=== PATIENT | female | born 1945 | race Caucasian/White ===

== ENCOUNTER 2017-11-27 17:08 | Inpatient (IN) ==
[2017-11-27] MEDS ORDERED: Lidocaine 1%/Epinephrine 1:100,000 Inj 20 ML Vial INFILTRATN ONE (17:47)
[2017-11-27] MEDS ORDERED: Tetanus/Diphtheria Toxoid Adult Vaccine Inj 0.5 ML Vial IM ONE (17:47)
--- NOTE | 2017-11-27 17:54 | ED ---
HPI General Chief Complaint: Extremity Injury, Lower Stated Complaint: poss broken leg Time Seen by Provider: 11/27/17 17:37 Source: patient and RN notes reviewed Mode of arrival: EMS Limitations: no limitations History of Present Illness HPI Narrative: 72-year-old female presents to the emergency department via EMS for evaluation of bilateral lower extremity injury. Patient states she was painting approximately 6 feet up on a ledge in her kitchen. She states that she slipped and fell, but her left leg got caught and she was hanging upside down by her left leg. Her came and was able to get her down. She was unable to walk due to pain. EMS placed a splint on her left leg and she received morphine prior to arrival. Patient denies any head injury LOC. No neck pain or back pain. No chest pain or abdominal pain. No vomiting. She is not on anticoagulants and has no bleeding disorders. She reports 6/10 pain to the left lower extremity and right lower extremity. She has a large laceration to the right anterior lower leg. She states her tetanus immunization is not up- to-date. She also has an abrasion to the left lower extremity. Moderate severity. MD complaint: knee injury and leg injury Onset (ago): minute(s) Injury: Left: knee Type of Injury: other Place: home Severity: moderate Severity scale (1-10): 6 Relieving factors: immobilization and other (Pain medication) Exacerbating factors: weight bearing, movement and palpation Context: fall Associated symptoms: unable to bear weight Other symptoms: none Related Data Home Medications Medication Instructions Recorded Confirmed citalopram 20 mg PO DAILY 11/27/17 11/27/17 Allergies Allergy/AdvReac Type Severity Reaction Status Date / Time No Known Allergies Allergy Uncoded 01/10/15 12:19 Review of Systems ROS: all other systems reviewed are negative PMFSH Medical History Medical History Breast cancer (Acute) Cervical cancer (Acute) Surgical History Surgical History History of mastectomy (Acute) Social History Social History Substance History: No History of Abuse Second Hand Smoke Exposure: No Smoking Status: Never smoker How Often Do You Have a Drink Containing Alcohol: 2 to 3 times a week Recent Travel in [facility] within the Last 8 Weeks: No Recent Out of Country Travel within the Last 8 Weeks: No Immunization History Tetanus Immunization: Unsure Hx Influenza Vaccine This Season: No Exam Narrative Exam Narrative: GENERAL: Well-nourished, well-developed female patient, afebrile SKIN: Focused skin assessment warm/dry. Patient has a 7cm laceration to the right anterior lower leg. She has an abrasion to the left anterior lower leg. HEAD: Normocephalic. Atraumatic EYES: No scleral icterus. No injection or drainage. NECK: Supple, trachea midline. No JVD or lymphadenopathy. CARDIOVASCULAR: Regular rate and rhythm without murmurs, gallops, or rubs. Bilateral pedal pulses 2+ RESPIRATORY: Breath sounds equal bilaterally. No accessory muscle use. Lung sounds are clear to auscultation GASTROINTESTINAL: Abdomen soft, non-tender, nondistended. MUSCULOSKELETAL: No cyanosis, or edema. Patient has left knee in a flexed position. She has ecchymosis and swelling to the left knee. She has tenderness over right tibia/fibula BACK: Nontender without obvious deformity. No CVA tenderness. No midline spinal tenderness. Procedures Laceration Laceration 1: Site: lower extremity Side (If applicable): right Size (cm): 7 Description: stellate Depth: simple, single layer Anesthetic used: lidocaine 1% Anesthesia technique:: local infiltration Amount (mL): 10 Pre-repair:: wound explored, irrigated extensively and deep structures intact Skin layer closed with: prolene Size (cm): 3-0 Number of sutures:: 12 Technique:: simple, interrupted Orthopedic Joint Reduction Joint #1: Time Out Performed: Yes Side: left Joint Reduction Location: knee/patella Technique Used: traction/counter-traction Post-Reduction Neuro Exam: intact Post-Reduction Vascular Exam: intact Post Reduction X-Ray Obtained: Yes Post Reduction X-Ray Results: other (partially reduced) Splint Applied: Yes Patient Tolerated Procedure: well Procedural Sedation Indications: fracture/dislocation reduction ASA Class: ASA 2 Moderate Systemic Disease Preparation: air sampling and monitoring applied, pulse oximeter, capnometry used, supplemental O2 applied, suction/airway equipment at bedside and IV secured IV Propofol Dose (mgs): 120 Patient Tolerated Procedure: well Complications: none Interventions: oxygen applied Course Initial Documented Vital Signs Temperature 98.1 F 11/27/17 17:29 Pulse Rate 65 11/27/17 17:29 Respiratory Rate 18 11/27/17 17:29 Blood Pressure 150/68 H 11/27/17 17:29 Pulse Oximetry 96 11/27/17 17:29 Last Documented Vital Signs Temperature 98.1 F 11/27/17 17:29 Pulse Rate 68 11/27/17 19:31 Respiratory Rate 18 11/27/17 19:31 Blood Pressure 137/60 11/27/17 19:31 Pulse Oximetry 98 11/27/17 19:31 Medical Decision Making KAUSHIK Attestation KAUSHIK supervised visit: Yes Attestation: I, Dr. Harris, have reviewed the advance practice practitioner's documentation and am in agreement, met with the patient face to face, made the diagnosis, and the medical decision making was done by me. *My assessment and Findings: Bedside dislocation reduction was performed and intervals of apparent anatomic alignment occurred lasting a few seconds and then the tibia would re-dislocate. Patient received 120 mg of propofol and was adequately sedated. Several times were made. Knee immobilizer applied. Pt will be admitted for pain management, monitoring and orthopedics evaluation and treatment. MDM Narrative Medical decision making narrative: 72 year old female presents to the emergency department for evaluation of bilateral lower leg injury after she slipped and was hanging upside down. Patient received morphine by EMS and declines further pain medication at this time. X-ray of the right knee, right tibia/fibula, left tibia/fibula, pelvis are ordered and pending. Tetanus immunization is updated. Patient gives verbal consent for laceration repair. X-ray of the right knee shows anterior dislocation of the femur, though definite fracture seen, however, there are radiographic findings suggesting possible fat fluid level in the suprapatellar bursa. X-ray of the right tibia/ fibula shows no evidence of recent bony injury. X-ray of the left tibia/fibula shows no acute bony injury. X-ray of the pelvis shows no acute bony injury. Reduction was attempted by my attending physician, Dr. Harris. However, anatomic alignment with only last a few seconds and would dislocate again. Knee immobilizer was placed. Postreduction x-ray is ordered. CBC, CMP, PTT, PT /INR are ordered and pending. CBC shows no acute abnormality. CMP shows no acute abnormality. PTT is 22.2. PT/INR is 10.0/1.0. I spoke with Dr. Mtz due to instability of the knee. MRI of the left knee is ordered per his request. He recommends admission and consult placed to him. Hospitalist is paged for admission. Dr. Caicedo accepted admission. Medical Screen Exam Complete: Yes Emergency Medical Condition: Yes Differential Diagnosis Differential Diagnosis: laceration vs. fracture vs. contusion vs. dislocation vs. ligamentaous injury Lab Data Result diagrams: 11/27/17 20:03 11/27/17 20:03 Lab Results 11/27/17 11/27/17 11/27/17 Range/Units 20:03 20:03 20:03 WBC 8.3 (4.0-11.0) th/mm3 RBC 4.51 (4.00-5.30) mil/mm3 Hgb 15.1 (11.6-15.3) gm/dL Hct 42.8 (35.0-46.0) % MCV 94.9 (80.0-100.0) fL MCH 33.4 (27.0-34.0) pg MCHC 35.2 (32.0-36.0) % RDW 12.5 (11.6-17.2) % Plt Count 213 (150-450) th/mm3 MPV 7.7 (7.0-11.0) fL Neut % (Auto) 66.9 (16.0-70.0) % Lymph % (Auto) 25.8 (9.0-44.0) % [place] % (Auto) 6.5 (0.0-8.0) % Eos % (Auto) 0.3 (0.0-4.0) % Baso % (Auto) 0.5 (0.0-2.0) % Neut # (Auto) 5.6 (1.8-7.7) th/mm3 Lymph # (Auto) 2.1 (1.0-4.8) th/mm3 [place] # (Auto) 0.5 (0.0-0.9) th/mm3 Eos # (Auto) 0.0 (0.0-0.4) th/mm3 Baso # (Auto) 0.0 (0.0-0.2) th/mm3 WBC Differential . Differential Comment Auto diff final PT 10.0 (9.8-11.6) sec INR 1.0 Ratio APTT 22.2 L (24.3-30.1) sec Sodium 143 (136-145) meq/L Potassium 3.8 (3.5-5.1) meq/L Chloride 108 H (98-107) meq/L Carbon Dioxide 26.5 (21.0-32.0) meq/L Anion Gap 9 (5-15) meq/L BUN 19 H (7-18) mg/dL Creatinine 0.88 (0.50-1.00) mg/dL Estimated GFR 63 L (>89) mL/min Random Glucose 94 (74-106) mg/dL Calcium 8.8 (8.5-10.1) mg/dL Total Bilirubin 0.5 (0.2-1.0) mg/dL AST 26 (15-37) U/L ALT 29 (10-53) U/L Alkaline Phosphatase 72 (45-117) U/L Total Protein 7.1 (6.4-8.2) g/dL Albumin 3.7 (3.4-5.0) g/dL Imaging Data Radiologist's impression: Knee X-Ray 11/27/17 17:47 CONCLUSION: Anterior dislocation of the femur. No definite fracture seen, however, there are radiographic findings suggesting possible fat fluid level in the suprapatellar bursa. Pelvis X-Ray 11/27/17 17:47 CONCLUSION: The bony pelvic ring is grossly intact. No evidence of acute bony injury. Tibia/Fibula X-Ray 11/27/17 17:47 CONCLUSION: The tibia and fibula are radiographically intact. Tibia/Fibula X-Ray 11/27/17 17:47 CONCLUSION: No evidence of recent bony injury. Knee X-Ray 11/27/17 19:51 CONCLUSION: Normal alignment of the femur and tibia status post reduction. Possible bony fragments or loose bodies seen posterior to the knee joint on the lateral view. Discharge Plan Discharge Disposition Patient Disposition: 30 Still Patient Discharge Details Diagnosis: Anterior dislocation of femur, distal end, closed, Acute internal derangement of knee Physicians Team ED Provider: Bayron Harris ED Midlevel Provider: Camila Fallon Primary Care Provider: Lazaro Wilburn Rxs /Orders / Referrals /Forms Prescriptions: No Action citalopram 10 mg Tablet 20 mg PO DAILY RF: 0 Status ED Status: With Doctor
--- NOTE | 2017-11-27 18:46 | XR ---
EXAM DATE: 11/27/2017 6:41 PM EDT AGE/SEX: 72 years / Female INDICATIONS: Left knee pain, fall. CLINICAL DATA: This is the patient's initial encounter. Patient reports that signs and symptoms have been present for 1 day and indicates a pain score of 10/10. MEDICAL/SURGICAL HISTORY: None. None. COMPARISON: [facility] [place], TIBIA FIBULA LEFT 2V, 11/27/2017. . FINDINGS: There is anterior dislocation of the femur with respect to the tibia and fibula. The patella remains in alignment with the distal femur. No fractures seen. No radiopaque foreign bodies. No distention of the suprapatellar soft tissues, but possible fat fluid level. CONCLUSION: Anterior dislocation of the femur. No definite fracture seen, however, there are radiographic finding s suggesting possible fat fluid level in the suprapatellar bursa. Electronically signed by: Luis Moura MD 11/27/2017 6:45 PM EDT
--- NOTE | 2017-11-27 18:48 | XR ---
EXAM DATE: 11/27/2017 6:38 PM EDT AGE/SEX: 72 years / Female INDICATIONS: Pelvic pain. CLINICAL DATA: This is the patient's initial encounter. Patient reports that signs and symptoms have been present for 1 day and indicates a pain score of 10/10. MEDICAL/SURGICAL HISTORY: None. None. COMPARISON: POI, XR HIP AP AND LAT, RIGHT, 08/23/2014. POI, XR ABDOMEN FLAT AND UPRIGHT, 8. . FINDINGS: Right total hip arthroplasty. Advanced degenerative changes in the left hip, unchanged in appearance when compared to 11/12/2017. The bony pelvic ring is intact. Moderate degenerative changes in the lower lumbar posterior elements. CONCLUSION: The bony pelvic ring is grossly intact. No evidence of acute bony injury. Electronically signed by: Luis Moura MD 11/27/2017 6:47 PM EDT
--- NOTE | 2017-11-27 18:49 | XR ---
EXAM DATE: 11/27/2017 6:43 PM EDT AGE/SEX: 72 years / Female INDICATIONS: Left leg pain, fall. CLINICAL DATA: This is the patient's initial encounter. Patient reports that signs and symptoms have been present for 1 day and indicates a pain score of 10/10. MEDICAL/SURGICAL HISTORY: None. None. COMPARISON: No prior exams available for comparison. FINDINGS: The shaft of the tibia and fibula is intact. No fracture seen. There is anterior dislocation of the f emur. CONCLUSION: The tibia and fibula are radiographically intact. Electronically signed by: Luis Moura MD 11/27/2017 6:47 PM EDT
--- NOTE | 2017-11-27 18:49 | XR ---
EXAM DATE: 11/27/2017 6:41 PM EDT AGE/SEX: 72 years / Female INDICATIONS: Right leg pain, fall. CLINICAL DATA: This is the patient's initial encounter. Patient reports that signs and symptoms have been present for 1 day and indicates a pain score of 10/10. MEDICAL/SURGICAL HISTORY: None. None. COMPARISON: No prior exams available for comparison. FINDINGS: Bony structures are intact and in normal alignment. Osseous density is normal. Localized soft tissue thickening adjacent to the proximal one third shaft of the tibia. No radiopaque foreign bodies seen. CONCLUSION: No evidence of recent bony injury. Electronically signed by: Luis Moura MD 11/27/2017 6:48 PM EDT
[2017-11-27 20:18] LABS: Baso % (Auto) 0.5 % (0.0-2.0); Eos % (Auto) 0.3 % (0.0-4.0); Hematocrit 42.8 % (35.0-46.0); Hemoglobin 15.1 gm/dL (11.6-15.3); Lymph # (Auto) 2.1 th/mm3 (1.0-4.8); Lymph % (Auto) 25.8 % (9.0-44.0); Mean Corpuscular HGB Conc 35.2 % (32.0-36.0); Mean Corpuscular Hemoglobin 33.4 pg (27.0-34.0); Mean Corpuscular Volume 94.9 fL (80.0-100.0); Mean Platelet Volume 7.7 fL (7.0-11.0); Mono # (Auto) 0.5 th/mm3 (0.0-0.9); Mono % (Auto) 6.5 % (0.0-8.0); Neut # (Auto) 5.6 th/mm3 (1.8-7.7); Neut % (Auto) 66.9 % (16.0-70.0); Platelet Count 213 th/mm3 (150-450); Red Blood Count 4.51 mil/mm3 (4.00-5.30); Red Cell Distribution Width 12.5 % (11.6-17.2); White Blood Count 8.3 th/mm3 (4.0-11.0)
[2017-11-27 20:23] LABS: Activated Partial Thrombo Time 22.2 sec (24.3-30.1)
[2017-11-27 20:46] LABS: Alanine Aminotransferase 29 U/L (10-53); Albumin 3.7 g/dL (3.4-5.0); Anion Gap 9 meq/L (5-15); Aspartate Aminotransferase 26 U/L (15-37); Blood Urea Nitrogen 19 mg/dL (7-18); Calcium 8.8 mg/dL (8.5-10.1); Carbon Dioxide 26.5 meq/L (21.0-32.0); Chloride 108 meq/L (98-107); Glomerular Filtration Rate 63 mL/min (>89); Glucose,Random 94 mg/dL (74-106); Potassium 3.8 meq/L (3.5-5.1); Sodium 143 meq/L (136-145)
[2017-11-27 20:48] LABS: Alkaline Phosphatase 72 U/L (45-117); Total Protein 7.1 g/dL (6.4-8.2)
--- NOTE | 2017-11-27 21:29 | XR ---
EXAM DATE: 11/27/2017 9:25 PM EDT AGE/SEX: 72 years / Female INDICATIONS: Post reduction, left knee dislocation. CLINICAL DATA: This is the patient's initial encounter. Patient reports that signs and symptoms have been present for 1 day and indicates a pain score of 7/10. MEDICAL/SURGICAL HISTORY: None. None. COMPARISON: [facility] [place] [facility] [place] KNEE LIMITED LEFT 04/07V, 11/27/2017. . FINDINGS: 2 view examination of the knee demonstrates normal alignment of the femur with respect to the tibia. On the lateral view, there are 2 ossific density is which measure up to 5 mm in size which may repres ent bony fragments, possibly related to tibial spine fractures. The fabella appears grossly intact. T he suprapatellar soft tissues are obscured by metallic braces. CONCLUSION: Normal alignment of the femur and tibia status post reduction. Possible bony fragments or loose odessa s seen posterior to the knee joint on the lateral view. Electronically signed by: Luis Moura MD 11/27/2017 9:28 PM EDT
[2017-11-27] MEDS ORDERED: Acetaminophen 325 MG Tablet PO PRN (23:49)
[2017-11-27] MEDS ORDERED: Bisacodyl 10 MG Supp RECTAL PRN (23:49)
[2017-11-27] MEDS ORDERED: HYDROmorphone PF Inj 2 MG/ML Vial IV.PUSH ONE (23:54)
--- NOTE | 2017-11-28 00:07 | P.HP ---
History of Present Illness Service: [facility] Primary Care Physician: Lazaro Wilburn History of Present Illness: 72-year-old female with past medical history significant for history of breast cancer presents to the emergency department after suffering a fall. The patient reports she was painting on a ledge in her kitchen when she slipped and fell but her leg got caught. The patient was hanging upside down by her left leg. Her brought a ladder and was able to dislodge her leg and carry her down from the ledge. Following the incident, the patient was unable to walk secondary to pain. She was found to have an anterior dislocation of the left femur and a 7 cm laceration to the right anterior lower leg. The patient' s femur was reduced multiple times in the emergency department and is currently splinted. She is neurovascularly intact. She endorses left lower extremity pain. Denies chest pain or shortness of breath. No loss of consciousness or head trauma. No abdominal pain. No nausea/vomiting/diarrhea. No fever/ chills. No lateralizing signs/symptoms. Inpatient Certification: I certify that the inpatient services were ordered in accordance with Medicare regulations governing the order. This includes certification that hospital inpatient services are reasonable and necessary and in the case of services not specified as inpatient-only under 42 CFR 419.22(n), that they are appropriately provided as inpatient services in accordance to with the 2-midnight benchmark under 43 CFR 412.3(e) Estimated Total Length of Stay (Days): 2 Plans for Post Hospital Care: Not yet determined Review of Systems All other systems reviewed negative except as stated in [facility] - History History Provided By: Patient - Medical History Medical History: Medical History (Last Updated 11/27/17 @ 17:34 by Jesus Fletcher) Breast cancer Cervical cancer - Surgical History Surgical History: Surgical History (Last Updated 11/27/17 @ 17:34 by Jesus Fletcher) History of mastectomy - Family History Family History: Family History (Last Updated 11/27/17 @ 23:58 by Gwen Caicedo MD) Other Coronary artery disease - Tobacco History Second Hand Smoke Exposure: No Tobacco Use In Past 30 Days: No Smoking Status: Never smoker - Alcohol History How Often Do You Have a Drink Containing Alcohol: 2 to 3 times a week - Substance Use History Substance History: No History of Abuse - Travel History Recent Travel in the [place] Within the Last 8 Weeks: No Recent Travel Out of the Country Within the Last 8 Weeks: No - Immunization History Tetanus Immunization: Unsure Hx Influenza Vaccine This Season: No Medications and Allergies Allergies Allergy/AdvReac Type Severity Reaction Status Date / Time No Known Allergies Allergy Uncoded 01/10/15 12:19 Home Medications Medication Instructions Recorded Confirmed Type citalopram 20 mg PO DAILY 11/27/17 11/27/17 History Exam Vital signs: Vital Signs 11/27/17 17:29 11/27/17 17:35 11/27/17 19:31 Temperature 98.1 F Pulse Rate 65 68 68 Respiratory Rate 18 Blood Pressure 150/68 H 150/68 H 137/60 Pulse Oximetry 96 95 98 Intake & Output 11/27/17 11/27/17 11/28/17 06:59 18:59 06:59 Weight 77.111 kg Narrative: Gen.: No acute distress Head: Normocephalic. Atraumatic. EENT: Pupils equal round and reactive to light. Nose without drainage. Airway intact. Throat without injection. Cardiovascular: Regular rate and rhythm. No murmurs, rubs or gallops. Respiratory: Lungs clear to auscultation bilaterally. No wheezes or rhonchi. Abdomen: Soft, nontender, nondistended. No peritoneal signs. Musculoskeletal: Left lower extremity splinted. Neurovascularly intact. Skin: Right lower extremity laceration, status post repair, hemostatic. Neuro: Sensory and motor grossly intact. Cranial nerves II through XII grossly intact. Results - Labs CBC & Chem 7: 11/27/17 20:03 11/27/17 20:03 Labs: Laboratory Results - last 24 hr 11/27/17 11/27/17 11/27/17 20:03 20:03 20:03 WBC 8.3 RBC 4.51 Hgb 15.1 Hct 42.8 MCV 94.9 MCH 33.4 MCHC 35.2 RDW 12.5 Plt Count 213 MPV 7.7 Neut % (Auto) 66.9 Lymph % (Auto) 25.8 [place] % (Auto) 6.5 Eos % (Auto) 0.3 Baso % (Auto) 0.5 Neut # (Auto) 5.6 Lymph # (Auto) 2.1 [place] # (Auto) 0.5 Eos # (Auto) 0.0 Baso # (Auto) 0.0 WBC Differential . Differential Comment Auto diff final PT 10.0 INR 1.0 APTT 22.2 L Sodium 143 Potassium 3.8 Chloride 108 H Carbon Dioxide 26.5 Anion Gap 9 BUN 19 H Creatinine 0.88 Estimated GFR 63 L Random Glucose 94 Calcium 8.8 Total Bilirubin 0.5 AST 26 ALT 29 Alkaline Phosphatase 72 Total Protein 7.1 Albumin 3.7 - Imaging Impressions Knee X-Ray 11/27/17 17:47 CONCLUSION: Anterior dislocation of the femur. No definite fracture seen, however, there are radiographic findings suggesting possible fat fluid level in the suprapatellar bursa. Pelvis X-Ray 11/27/17 17:47 CONCLUSION: The bony pelvic ring is grossly intact. No evidence of acute bony injury. Tibia/Fibula X-Ray 11/27/17 17:47 CONCLUSION: The tibia and fibula are radiographically intact. Tibia/Fibula X-Ray 11/27/17 17:47 CONCLUSION: No evidence of recent bony injury. Knee X-Ray 11/27/17 19:51 CONCLUSION: Normal alignment of the femur and tibia status post reduction. Possible bony fragments or loose bodies seen posterior to the knee joint on the lateral view. Caprini VTE Risk Assessment Caprini VTE Risk Assessment: Moderate/High Risk (score >= 2) Caprini Risk Assessment Model: Point Value = 1 Point Value = 2 Point Value = 3 Point Value = 5 Age 41-60 Minor surgery BMI > 25 kg/m2 Swollen legs Varicose veins or History of unexplained or recurrent spontaneous Oral contraceptives or hormone replacement Sepsis (< 1 month) Serious lung disease, including pneumonia (< 1 month) Abnormal pulmonary function Acute myocardial infarction Congestive heart failure (< 1 month) History of inflammatory bowel disease Medical patient at bed rest Age 61-74 Arthroscopic surgery Major open surgery (> 45 min) Laparoscopic surgery (> 45 min) Malignancy Confined to bed (> 72 hours) Immobilizing plaster cast Central venous access Age >= 75 History of VTE Family history of VTE Factor V Leiden Prothrombin [id number] Lupus anticoagulant Anticardiolipin antibodies Elevated serum homocysteine Heparin-induced thrombocytopenia Other congenital or acquired thrombophilia Stroke (< 1 month) Elective arthroplasty Hip, pelvis, or leg fracture Acute spinal cord injury (< 1 month) Prophylaxis Regimen: Total Risk Factor Score Risk Level Prophylaxis Regimen 0-1 Low Early ambulation 2 Moderate Order ONE of the following: *Sequential Compression Device (SCD) *Heparin 5000 units SQ BID 3-4 Higher Order ONE of the following medications: *Heparin 5000 units SQ TID *Enoxaparin/Lovenox 40 mg SQ daily (WT < 150 kg, CrCl > 30 mL/min) *Enoxaparin/Lovenox 30 mg SQ daily (WT < 150 kg, CrCl > 10-29 mL/min) *Enoxaparin/Lovenox 30 mg SQ BID (WT < 150 kg, CrCl > 30 mL/min) AND/OR *Sequential Compression Device (SCD) 5 or more Highest Order ONE of the following medications: *Heparin 5000 units SQ TID (Preferred with Epidurals) *Enoxaparin/Lovenox 40 mg SQ daily (WT < 150 kg, CrCl > 30 mL/min) *Enoxaparin/Lovenox 30 mg SQ daily (WT < 150 kg, CrCl > 10-29 mL/min) *Enoxaparin/Lovenox 30 mg SQ BID (WT < 150 kg, CrCl > 30 mL/min) AND *Sequential Compression Device (SCD) Assessment and Plan - Plan Assessment/plan: 1. Left lower extremity injury/femur dislocation Orthopedic surgery consulted, appreciate assistance MRI pending Morphine for pain PT FEN N.p.o. Electrolytes: Monitor and replete as needed NS at 100 cc/hour Holding pharmacologic anticoagulation for possible operative intervention
--- NOTE | 2017-11-28 00:58 | MR ---
EXAM DATE: 11/28/2017 12:42 AM EDT AGE/SEX: 72 years / Female INDICATIONS: Internal derangement. CLINICAL DATA: This is the patient's initial encounter. Patient reports that signs and symptoms have been present for 1 day and indicates a pain score of 9/10. MEDICAL/SURGICAL HISTORY: Carcinoma, breast. Mastectomy, right. Hip replacement. COMPARISON: [facility] – [place], KNEE LIMITED LEFT 1/2V, 11/27/2017. . TECHNIQUE: Multiplanar, multisequence MRI examination was performed without contrast. FINDINGS: Images are somewhat limited due to motion artifact on every sequence. Cruciate Ligaments: The posterior cruciate ligament appears to be completely disrupted anterior cruc iate ligament is intact. Menisci: Medial and lateral menisci are intact. Collateral Ligaments: MCL and LCL complexes are intact. Marrow/Cartilage: Bone marrow signal is homogeneous and unremarkable. Articular cartilage is unrema rkable. Other: Small to moderate-sized joint effusion. Extensor mechanism is intact. CONCLUSION: 1. There appears to be complete disruption of the posterior cruciate ligament. Anterior cruciate lig ament and both menisci appear to be intact. 2. Small to moderate-sized joint effusion. Electronically signed by: Chris Moreira MD 11/28/2017 12:57 AM EDT
[2017-11-28] MEDS ORDERED: Sodium Chlor 0.9% Inj 500 ML IV.SIG SCH (04:00)
[2017-11-28] MEDS ORDERED: Chlorhexidine Gluconate 2% 1 Pack (2 Cloths) TOPICAL SCH (04:00)
[2017-11-28] MEDS: Morphine Inj 4 MG/ML Vial IV.PUSH PRN ×3 (04:09→13:27)
[2017-11-28] MEDS: Sod Chloride 0.9% Inj 1,000 ML IV.CONT SCH ×3 (04:09→23:29)
[2017-11-28 06:24] LABS: Baso % (Auto) 0.3 % (0.0-2.0); Hematocrit 39.1 % (35.0-46.0); Hemoglobin 13.4 gm/dL (11.6-15.3); Lymph # (Auto) 2.2 th/mm3 (1.0-4.8); Lymph % (Auto) 27.3 % (9.0-44.0); Mean Corpuscular HGB Conc 34.4 % (32.0-36.0); Mean Corpuscular Hemoglobin 33.2 pg (27.0-34.0); Mean Corpuscular Volume 96.5 fL (80.0-100.0); Mean Platelet Volume 6.9 fL (7.0-11.0); Mono # (Auto) 0.8 th/mm3 (0.0-0.9); Mono % (Auto) 9.6 % (0.0-8.0); Neut % (Auto) 62.8 % (16.0-70.0); Platelet Count 171 th/mm3 (150-450); Red Blood Count 4.05 mil/mm3 (4.00-5.30); Red Cell Distribution Width 12.8 % (11.6-17.2)
[2017-11-28 07:14] LABS: Carbon Dioxide 26.6 meq/L (21.0-32.0); Potassium 4.2 meq/L (3.5-5.1)
[2017-11-28] MEDS: Senna/Docusate Sodium 8.6/50 MG Tablet PO SCH (08:38)
--- NOTE | 2017-11-28 12:38 | P.PNIM ---
Subjective Interval history: Patient seen and examined this morning. Afebrile vital signs stable. Lying in bed comfortably. Denies any severe pain. Explained to the patient that she has a rupture of the posterior cruciate ligament. Described how her procedure will likely occur with the orthopedic surgeon. To be evaluated by orthopedic surgeon today and likely will have surgery later today. Physical Exam Vital signs: Vital Signs 11/27/17 17:29 11/27/17 17:35 11/27/17 19:31 Temperature 98.1 F Pulse Rate 65 68 68 Respiratory Rate 18 18 18 Blood Pressure 150/68 H 150/68 H 137/60 Pulse Oximetry 96 95 98 11/28/17 01:00 11/28/17 06:00 11/28/17 08:00 Temperature 98.8 F 97.8 F 98.4 F Pulse Rate 77 68 70 Respiratory Rate 16 18 12 Blood Pressure 135/63 132/61 120/58 L Pulse Oximetry 96 96 94 L Intake & Output 11/27/17 11/28/17 11/28/17 18:59 06:59 18:59 Intake Total 0 / 0 Balance 0 / 0 Weight 77.111 kg 78.3 kg Intake: Oral 0 / 0 Other: # Voids 0 Date of Last Bowel Movement 11/27/17 11/27/17 Weight On Admission 77.1 kg Narrative: GEN: Well-developed, well-nourished patient. No acute distress. MSK: Left knee in soft splint CV: Regular rate and rhythm without obvious murmurs LUNGS: Clear to auscultation bilaterally. Normal respiratory effort. No wheezes , rales, rhonchi. GI: Soft, nontender, nondistended. No palpable masses. Bowel sounds WNL. EXT: No edema. NEURO/PSYCH: Afocal. Awake, alert, and oriented x3. Appropriate insight and judgment. Results - Labs CBC & Chem 7: 11/28/17 05:35 11/28/17 05:35 Laboratory Results - last 24 hr 11/27/17 11/27/17 11/27/17 20:03 20:03 20:03 WBC 8.3 RBC 4.51 Hgb 15.1 Hct 42.8 MCV 94.9 MCH 33.4 MCHC 35.2 RDW 12.5 Plt Count 213 MPV 7.7 Neut % (Auto) 66.9 Lymph % (Auto) 25.8 [place] % (Auto) 6.5 Eos % (Auto) 0.3 Baso % (Auto) 0.5 Neut # (Auto) 5.6 Lymph # (Auto) 2.1 [place] # (Auto) 0.5 Eos # (Auto) 0.0 Baso # (Auto) 0.0 WBC Differential . Differential Comment Auto diff final PT 10.0 INR 1.0 APTT 22.2 L Sodium 143 Potassium 3.8 Chloride 108 H Carbon Dioxide 26.5 Anion Gap 9 BUN 19 H Creatinine 0.88 Estimated GFR 63 L Random Glucose 94 Calcium 8.8 Total Bilirubin 0.5 AST 26 ALT 29 Alkaline Phosphatase 72 Total Protein 7.1 Albumin 3.7 11/28/17 11/28/17 05:35 05:35 WBC 8.0 RBC 4.05 Hgb 13.4 Hct 39.1 MCV 96.5 MCH 33.2 MCHC 34.4 RDW 12.8 Plt Count 171 MPV 6.9 L Neut % (Auto) 62.8 Lymph % (Auto) 27.3 [place] % (Auto) 9.6 H Eos % (Auto) 0.0 Baso % (Auto) 0.3 Neut # (Auto) 5.0 Lymph # (Auto) 2.2 [place] # (Auto) 0.8 Eos # (Auto) 0.0 Baso # (Auto) 0.0 WBC Differential . Differential Comment Auto diff final PT INR APTT Sodium 141 Potassium 4.2 Chloride 109 H Carbon Dioxide 26.6 Anion Gap 5 BUN 12 Creatinine 0.67 Estimated GFR 86 L Random Glucose 126 H Calcium 8.0 L D Total Bilirubin AST ALT Alkaline Phosphatase Total Protein Albumin - Imaging Impressions Knee X-Ray 11/27/17 17:47 CONCLUSION: Anterior dislocation of the femur. No definite fracture seen, however, there are radiographic findings suggesting possible fat fluid level in the suprapatellar bursa. Pelvis X-Ray 11/27/17 17:47 CONCLUSION: The bony pelvic ring is grossly intact. No evidence of acute bony injury. Tibia/Fibula X-Ray 11/27/17 17:47 CONCLUSION: The tibia and fibula are radiographically intact. Tibia/Fibula X-Ray 11/27/17 17:47 CONCLUSION: No evidence of recent bony injury. Knee X-Ray 11/27/17 19:51 CONCLUSION: Normal alignment of the femur and tibia status post reduction. Possible bony fragments or loose bodies seen posterior to the knee joint on the lateral view. Knee MRI 11/27/17 21:53 CONCLUSION: 1. There appears to be complete disruption of the posterior cruciate ligament. Anterior cruciate ligament and both menisci appear to be intact. 2. Small to moderate-sized joint effusion. Assessment and Plan - Assessment (1) Posterior cruciate tear Code(s): S83.529A - Sprain of posterior cruciate ligament of unspecified knee, initial encounter Status: Acute - Plan This is a 72-year-old female with dislocation of the left knee that resulted in a tear of the left posterior cruciate ligament. Her knee has been reset, and patient be further evaluated by orthopedic surgery for likely further surgical repair. 1. Left posterior cruciate ligament tear Orthopedic surgery consulted, appreciate assistance Morphine for pain PT FEN N.p.o. Electrolytes: Monitor and replete as needed NS at 100 cc/hour Holding pharmacologic anticoagulation for possible operative intervention Code Status: Full code Discharge Planning: Pending clearance by orthopedic surgery
--- NOTE | 2017-11-28 12:45 | ECG ---
Date Performed: 11/28/2017 Time Performed: 07:39:44 PTAGE: 72 years EKG: Sinus rhythm MARKED LEFT AXIS DEVIATION LEFT BUNDLE BRANCH BLOCK ABNORMAL ECG NO PREVIOUS TRACING DOCTOR: Bull Reina Interpretating Date/Time 11/28/2017 12:43:42
[2017-11-28] MEDS ORDERED: Phenylephrine/NS 1000 MCG/10ML Syringe IV.PUSH ONE (16:35)
[2017-11-28] MEDS ORDERED: Lidocaine PF 1% Inj 5 ML Syringe INFILTRATN ONE (16:35)
[2017-11-28] MEDS ORDERED: Bupivacaine/Epinephrine Inj 0.25% 50 ML Vial ONE (16:48)
[2017-11-28] MEDS ORDERED: Ketorolac Inj 30 MG/ML (IVP) Vial IV.PUSH ONE (19:00)
[2017-11-28] MEDS ORDERED: Morphine Inj 4 MG/ML Vial IV.PUSH PRN (19:32)
[2017-11-28] MEDS ORDERED: Post-op Orders (for Pharmacy) OTHER STA (19:32)
--- NOTE | 2017-11-28 19:32 | P.CONOP ---
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 She had severe pain. Her was able to rescue her. They noted deformity of the left knee as well as a large laceration on her anterior right leg. She was evacuated to [facility] and underwent primary repair of the laceration of the right leg was found to have a posterior lateral dislocation of her left knee she had a highly unstable knee which tended to continue the dislocated after being reduced in the ER. She was maintained in the reduced position with the knee immobilizer. An MRI scan was completed which showed significant amount abnormalities. Consultation is now requested with the undersigned. Review of Systems All other systems reviewed negative except as stated in [facility] - History History Provided By: Patient - Medical History Medical History: Medical History (Last Reviewed 11/28/17 @ 19:21 by Ludwig Mtz MD) Back pain Breast cancer Cervical cancer Chronic pain Depression Diminished hearing High cholesterol History of blood product transfusion Hypothyroidism Neck pain - Surgical History Surgical History: Surgical History (Last Reviewed 11/28/17 @ 19:21 by Ludwig Mtz MD) History of mastectomy - Family History Family History: Family History (Last Reviewed 11/28/17 @ 19:21 by Ludwig Mtz MD) Other Coronary artery disease - Tobacco History Second Hand Smoke Exposure: No Tobacco Use In Past 30 Days: No Smoking Status: Never smoker - Alcohol History How Often Do You Have a Drink Containing Alcohol: 4 or more times a week - Substance Use History Substance History: No History of Abuse - Travel History Recent Travel in the [place] Within the Last 8 Weeks: No Recent Travel Out of the Country Within the Last 8 Weeks: No - Immunization History Tetanus Immunization: Unsure Hx Influenza Vaccine This Season: No Medications and Allergies Active Medications: Active Medications Acetaminophen (Tylenol) 650 mg PO Q4H PRN PRN Reason: Temp > 100.4 Al Hydroxide/Mg Hydroxide (Milk Of Magnesia Liq) 30 ml PO Q12H PRN PRN Reason: Mild Constipation Bisacodyl (Dulcolax Supp) 10 mg RECTAL DAILY PRN PRN Reason: SEVERE CONSITIPATION Chlorhexidine Gluconate (Chlorhexidine 2% Cloth) 3 pack [employer]ET[employer]ING [employer]GER [facility] Stop: 12/01/17 03:58 Sodium Chloride (Ns Inj) 1,000 mls @ 100 mls/hr IV.CONT .Q10H [facility] Last Admin: 11/28/17 15:46 Dose: 100 mls/hr Lactated Ringer's (Lr 1000 Ml Inj) 1,000 mls @ 30 mls/hr IV.SIG .Q24H [facility] Stop: 12/01/17 03:58 Last Admin: 11/28/17 04:10 Dose: 30 mls/hr Sodium Chloride (Ns Inj) 500 mls @ 30 mls/hr IV.SIG .Q10H [facility] Stop: 12/01/17 03:58 Lactulose (Lactulose Liq) 30 ml PO DAILY PRN PRN Reason: SEVERE CONSITIPATION Morphine Sulfate (Morphine Inj) 4 mg IV.PUSH Q4H PRN PRN Reason: pain 6-10 Last Admin: 11/28/17 13:27 Dose: 4 mg Ondansetron HCl (Zofran Inj) 4 mg IV.PUSH Q6H PRN PRN Reason: NAUSEA OR VOMITING Last Admin: 11/28/17 04:09 Dose: 4 mg Povidone Iodine (Betadine 5% Antisepsis Kit) 1 applicatio EACH [employer]ET[employer]ANNING MANAGER [facility] Stop: 12/01/17 03:58 Senna/Docusate Sodium (Jennifer-Colace) 1 tab PO BID [facility] Last Admin: 11/28/17 08:38 Dose: Not Given Sennosides (Senokot) 17.2 mg PO Q12H PRN PRN Reason: Moderate Constipation Allergies Allergy/AdvReac Type Severity Reaction Status Date / Time No Known Allergies Allergy Uncoded 01/10/15 12:19 Home Medications Medication Instructions Recorded Confirmed Type citalopram 20 mg PO DAILY 11/27/17 11/27/17 History levothyroxine [Synthroid] 100 mcg PO DAILY 11/28/17 11/28/17 History Exam Vital signs: Vital Signs 11/27/17 19:31 11/28/17 01:00 11/28/17 06:00 Temperature 98.8 F 97.8 F Pulse Rate 68 77 68 Respiratory Rate 18 16 18 Blood Pressure 137/60 135/63 132/61 Pulse Oximetry 98 96 96 11/28/17 08:00 11/28/17 12:00 Temperature 98.4 F 98.7 F Pulse Rate 70 61 Respiratory Rate 12 13 Blood Pressure 120/58 L 120/58 L Pulse Oximetry 94 L 91 L Intake & Output 11/28/17 11/28/17 11/29/17 06:59 18:59 06:59 Intake Total 0 / 0 1000 / 1000 Balance 0 / 0 1000 / 1000 Weight 78.3 kg Intake: IV 1000 / 1000 NS Inj 1,000 ML @ 100 mls/hr IV 1000 / 1000 .CONT .Q10H [facility] Rx#:[id number] Oral 0 / 0 0 / 0 Other: # Voids 0 2 Date of Last Bowel Movement 11/27/17 11/27/17 # Bowel Movements 0 Weight On Admission 77.1 kg Narrative: Evaluated with at the bedside Evaluated with RN at the bedside - Constitutional no acute distress - Routine HEENT Exam Head: Present: normocephalic Eye: Present: EOMI ENT: Present: mucous membranes moist - Routine Extremities Exam Comments: Right lower extremity surgical dressing in place of the anterior leg. Otherwise good motion right hip right knee right ankle. Left lower extremity shows a long-leg knee brace in place which is removed. With the brace removed we can see a posterior lateral subluxation of the knee. With very gentle ligamentous testing we note that she has marked lateral instability. With valgus stress the medial side of the appears to be intact. Her calves are soft and her Homans sign is negative. She does have discomfort with any movement of the left lower extremity. She is able to slightly dorsiflex her toes and her tibialis anterior but she has weakness. 2+ distal pulses bilateral symmetric Sensation is intact to light touch Results - Labs Result Diagrams: 11/28/17 05:35 11/28/17 05:35 Labs: Laboratory Results - last 24 hr 11/27/17 11/27/17 11/27/17 20:03 20:03 20:03 WBC 8.3 RBC 4.51 Hgb 15.1 Hct 42.8 MCV 94.9 MCH 33.4 MCHC 35.2 RDW 12.5 Plt Count 213 MPV 7.7 Neut % (Auto) 66.9 Lymph % (Auto) 25.8 [place] % (Auto) 6.5 Eos % (Auto) 0.3 Baso % (Auto) 0.5 Neut # (Auto) 5.6 Lymph # (Auto) 2.1 [place] # (Auto) 0.5 Eos # (Auto) 0.0 Baso # (Auto) 0.0 WBC Differential . Differential Comment Auto diff final PT 10.0 INR 1.0 APTT 22.2 L Sodium 143 Potassium 3.8 Chloride 108 H Carbon Dioxide 26.5 Anion Gap 9 BUN 19 H Creatinine 0.88 Estimated GFR 63 L Random Glucose 94 Calcium 8.8 Total Bilirubin 0.5 AST 26 ALT 29 Alkaline Phosphatase 72 Total Protein 7.1 Albumin 3.7 11/28/17 11/28/17 05:35 05:35 WBC 8.0 RBC 4.05 Hgb 13.4 Hct 39.1 MCV 96.5 MCH 33.2 MCHC 34.4 RDW 12.8 Plt Count 171 MPV 6.9 L Neut % (Auto) 62.8 Lymph % (Auto) 27.3 [place] % (Auto) 9.6 H Eos % (Auto) 0.0 Baso % (Auto) 0.3 Neut # (Auto) 5.0 Lymph # (Auto) 2.2 [place] # (Auto) 0.8 Eos # (Auto) 0.0 Baso # (Auto) 0.0 WBC Differential . Differential Comment Auto diff final PT INR APTT Sodium 141 Potassium 4.2 Chloride 109 H Carbon Dioxide 26.6 Anion Gap 5 BUN 12 Creatinine 0.67 Estimated GFR 86 L Random Glucose 126 H Calcium 8.0 L D Total Bilirubin AST ALT Alkaline Phosphatase Total Protein Albumin - Diagnostic results Imaging: Impressions Knee X-Ray 11/27/17 19:51 CONCLUSION: Normal alignment of the femur and tibia status post reduction. Possible bony fragments or loose bodies seen posterior to the knee joint on the lateral view. Knee MRI 11/27/17 21:53 CONCLUSION: 1. There appears to be complete disruption of the posterior cruciate ligament. Anterior cruciate ligament and both menisci appear to be intact. 2. Small to moderate-sized joint effusion. I reviewed the MRI and I agree the PCL appears completely disrupted. It appears to be an avulsion off of the femoral attachment site. The ACL has a questionable attachment site onto the tibia. The posterior lateral corner shows significant abnormality. Assessment and Plan - Problem List (1) Posterior dislocation of proximal end of tibia, left knee, initial encounter Code(s): S83.125A - Posterior dislocation of proximal end of tibia, left knee, initial encounter Status: Acute - Assessment and Plan Her condition of left knee posterior lateral dislocation with weakness in her left foot and significant instability of the knee was discussed and the options of treatment were discussed. I think she may have had some partial stretch injury to her common peroneal nerve. Hopefully there will be no long-term nerve issues. At age 73, we talked about 3 major different alternatives. Option 1. Brace only Option 2. External fixator Option 3. Combination of arthroscopic and open repair and possible ligamentous augmentation with allograft We had a full discussion and decided to move forward with surgical intervention. I discussed at length with the patient the patient's the surgical technique and how will go step by step. We talked about inherent risk the risk of infection, nerve damage, blood vessel damage, stiffness of the knee , ongoing instability in the, need for revision surgery, anesthetic complications, medical complications, and unforeseen possible complications, all of her questions were answered. She was to proceed with surgery. A detailed informed consent was obtained.
[2017-11-28] MEDS ORDERED: fentaNYL Citrate Inj 100 MCG/2 ML Ampul ONE (19:50)
[2017-11-28] MEDS ORDERED: *morphine SULFATE 4 MG/ML PERIprocedure ONLY ONE (20:25)
[2017-11-29] MEDS: Senna/Docusate Sodium 8.6/50 MG Tablet PO SCH ×3 (00:12→21:44)
[2017-11-29] MEDS: ceFAZolin 2 GM Premix Inj 2 GM/50 ML PIGGYBACK IV.SIG SCH ×2 (00:12→05:00)
[2017-11-29] MEDS: ceFAZolin 2 GM Premix Inj 2 GM/100 ML BAG IV.SIG SCH ×2 (05:21→11:30)
[2017-11-29] MEDS: Sod Chloride 0.9% Inj 1,000 ML IV.CONT SCH ×2 (06:49→15:45)
--- NOTE | 2017-11-29 07:16 | MP ---
cc: Ludwig Mtz MD DATE OF OPERATION: 11/28/2017 PREOPERATIVE DIAGNOSIS: Left knee posterolateral dislocation with multiligamentous injury. POSTOPERATIVE DIAGNOSIS: Left knee posterolateral dislocation with complete rupture of the posterior cruciate ligament, the anterior cruciate ligament and the lateral collateral and posterolateral corner. PROCEDURE: Left knee arthroscopic evaluation and conversion to open repair of posterior cruciate ligament and anterior cruciate ligament and open repair of lateral collateral ligament and posterolateral corner. ANESTHETIC: General. SURGEON: Ludwig Mtz MD JOCKEY ROOM CUSTODIAN: SHERRON Villasenor ESTIMATED BLOOD LOSS: 200 mL DRAIN: None. SPECIMENS: None. COMPLICATIONS: None known. 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 She sustained a posterolateral knee dislocation, which was highly unstable. She was admitted to the medical service with consultation placed at the undersigned. The options for treatment were thoroughly discussed. A detailed informed consent was obtained for surgical intervention. The bankruptcy assistant is an advanced registered nurse practitioner and his skill set was medically necessary for the performance of the operation. PROCEDURE IN DETAIL: The patient was brought into the operating room. She was placed under general anesthesia. The left lower extremity was draped and prepped in the usual sterile fashion. The exam under anesthesia showed that the knee easily dislocated posteriorly and there was gross lateral instability. Also anterior instability was noted with a positive Kaia. With valgus stress, there was no instability. The IV antibiotics were given. Timeout was completed. We started with arthroscopic portals inferomedial and inferolateral and evacuated hematoma of the knee. Patellofemoral joint appeared normal. The notch was difficult to visualize because of the amount of bleeding but once visualization was achieved, we noted that the PCL was completely torn from its origin with the bare spot on the femur and the edge of the ligament could be seen posteriorly. Also noted was that the ACL was a complete avulsion directly off of the tibia. We attempted to mobilize this tissue. This was not amenable to arthroscopic repair. Decision was made to convert to open repair. We proceeded with an anteromedial incision along the medial edge of the patellar tendon and traversed the fat pad and visualized directly into the notch and proceeded to mobilize the PCL tissue for repair and we used [employer] suture anchors in the footprint of the PCL and we used a whipstitch through the PCL and were able to advance that with the knee in the reduced position and then tied off the sutures. We noted marked improvement and the knee now no longer posterior dislocated and subluxated. In a similar fashion, attention was drawn to the ACL and the primary repair of the ACL was completed with a suture anchor anterior to the footprint and locking stitches tensioning into this position. After this was completed, we made a posterolateral incision and we took this down to the fascial layer and then at the fascial layer, we dissected anteriorly and posteriorly and we went posteriorly until we identified the location of the peroneal nerve and then we split the layer one so that we could visualize the posterolateral corner and we identified that the popliteus was torn. We identified the lateral collateral ligament was torn and at the tibial ligament and capsular ligaments were torn. We assessed all these structures and proceeded with suture anchor repair with repairing the LCL to the lateral epicondyle and repairing the popliteus. A portion of the popliteus had remained in place as well as a portion of the lateral collateral ligament had remained in place and then we anchored down on the tibia and the lateral capsular structures confirming the whole time that the nerve was safe from harm's way. We then irrigated out both areas with copious amounts of irrigation. We did use a tourniquet for a portion of the repair. The tourniquet was let down and we obtained hemostasis and we proceeded to repair the windows that we had made in the layer one laterally and then proceeded to close in layers so that the fat pad and the extensor mechanism anteriorly and then the subcutaneous and then felisha on the skin. Xeroform was applied. Sterile dressing was applied. The patient was awakened and returned to recovery room in stable condition. MD AVNI Castellano/vipul/philippe , 07:51 PM , 08:05 PM
[2017-11-29 07:30] LABS: Hematocrit 36.4 % (35.0-46.0); Hemoglobin 12.3 gm/dL (11.6-15.3); Mean Corpuscular HGB Conc 33.8 % (32.0-36.0); Mean Corpuscular Hemoglobin 33.1 pg (27.0-34.0); Mean Platelet Volume 7.4 fL (7.0-11.0); Platelet Count 149 th/mm3 (150-450); Red Blood Count 3.71 mil/mm3 (4.00-5.30); Red Cell Distribution Width 13.1 % (11.6-17.2); White Blood Count 7.2 th/mm3 (4.0-11.0)
--- NOTE | 2017-11-29 07:54 | P.PNOP ---
Subjective Interval history: Patient comfortable. Pain controlled. Physical Exam Vital signs: Vital Signs 11/28/17 08:00 11/28/17 12:00 11/28/17 19:42 Temperature 98.4 F 98.7 F 98.2 F Pulse Rate 70 61 75 Respiratory Rate 12 13 14 Blood Pressure 120/58 L 120/58 L 141/67 H Pulse Oximetry 94 L 91 L 94 L 11/28/17 19:45 11/28/17 20:00 11/28/17 20:15 Temperature 98.2 F 98.2 F 98.2 F Pulse Rate 75 73 71 Respiratory Rate 14 14 14 Blood Pressure 142/68 H 142/75 H 133/63 Pulse Oximetry 92 L 96 94 L 11/28/17 20:30 11/28/17 20:45 11/28/17 21:27 Temperature 98.2 F 98.1 F Pulse Rate 70 71 Respiratory Rate 14 14 Blood Pressure 110/57 L 137/67 Pulse Oximetry 94 L 94 L 94 L 11/29/17 00:00 11/29/17 04:00 Temperature 98.0 F 98.2 F Pulse Rate 71 65 Respiratory Rate 17 16 Blood Pressure 102/54 L 135/63 Pulse Oximetry 95 97 Intake & Output 11/28/17 11/29/17 11/29/17 18:59 06:59 18:59 Intake Total 1000 / 1000 1830 / 1830 Output Total 200 / 200 Balance 1000 / 1000 1630 / 1630 Weight 78.5 kg Intake: IV 1000 / 1000 230 / 230 NS Inj 1,000 ML @ 100 mls/hr IV 1000 / 1000 .CONT .Q10H [facility] Rx#:[id number] LR 1000 mL Inj 1,000 ML @ 30 30 / 30 mls/hr IV.SIG .Q24H [facility] Rx#: [id number] Ancef 2 GM Premix Inj 2 gm In 100 / 100 100 ml @ 200 mls/hr IV.SIG Q6H [facility] Rx#:[id number] Ancef 2 GM Premix Inj 2 gm In 100 / 100 50 ml @ 100 mls/hr IV.SIG Q6H [facility] Rx#:[id number] Oral 0 / 0 Anesthesia Amount 1600 / 1600 Output: Estimated Blood Loss 200 / 200 Other: # Voids 2 4 Date of Last Bowel Movement 11/27/17 11/26/17 # Bowel Movements 0 Narrative: Left knee dann wrap C/D/I long hinge knee brace in place NVI Results - Labs CBC & Chem 7: 11/29/17 06:27 11/28/17 05:35 Laboratory Results - last 24 hr 11/29/17 06:27 WBC 7.2 RBC 3.71 L Hgb 12.3 Hct 36.4 MCV 98.0 MCH 33.1 MCHC 33.8 RDW 13.1 Plt Count 149 L MPV 7.4 Assessment and Plan - Problem List (1) Posterior dislocation of proximal end of tibia, left knee, initial encounter Code(s): S83.125A - Posterior dislocation of proximal end of tibia, left knee, initial encounter Status: Acute - Assessment and Plan POD #1 Left knee arthroscopic evaluation and conversion to open repair of posterior cruciate ligament and anterior cruciate ligament and open repair of lateral collateral ligament and posterolateral corner. Pain management Physical therapy - TTWB Wear long hinge knee brace at all times (brace set to 20 deg. of flexion) Medical management D/C planning Monitor
[2017-11-29 07:59] LABS: Calcium 7.6 mg/dL (8.5-10.1); Potassium 4.2 meq/L (3.5-5.1)
--- NOTE | 2017-11-29 08:49 | P.PNIM ---
Subjective Interval history: Patient seen and examined this morning. Afebrile vital signs stable. Patient denies any pain at this time. She has no complaints or issues at this time. Denies any chest pain or shortness of breath. Physical Exam Vital signs: Vital Signs 11/28/17 12:00 11/28/17 19:42 11/28/17 19:45 Temperature 98.7 F 98.2 F 98.2 F Pulse Rate 61 75 75 Respiratory Rate 13 14 14 Blood Pressure 120/58 L 141/67 H 142/68 H Pulse Oximetry 91 L 94 L 92 L 11/28/17 20:00 11/28/17 20:15 11/28/17 20:30 Temperature 98.2 F 98.2 F 98.2 F Pulse Rate 73 71 70 Respiratory Rate 14 14 14 Blood Pressure 142/75 H 133/63 110/57 L Pulse Oximetry 96 94 L 94 L 11/28/17 20:45 11/28/17 21:27 11/29/17 00:00 Temperature 98.1 F 98.0 F Pulse Rate 71 71 Respiratory Rate 14 17 Blood Pressure 137/67 102/54 L Pulse Oximetry 94 L 94 L 95 11/29/17 04:00 Temperature 98.2 F Pulse Rate 65 Respiratory Rate 16 Blood Pressure 135/63 Pulse Oximetry 97 Intake & Output 11/28/17 11/29/17 11/29/17 18:59 06:59 18:59 Intake Total 1000 / 1000 1830 / 1830 Output Total 200 / 200 Balance 1000 / 1000 1630 / 1630 Weight 78.5 kg Intake: IV 1000 / 1000 230 / 230 NS Inj 1,000 ML @ 100 mls/hr IV 1000 / 1000 .CONT .Q10H AMILCAR Rx#:[id number] LR 1000 mL Inj 1,000 ML @ 30 30 / 30 mls/hr IV.SIG .Q24H AMILCAR Rx#: [id number] Ancef 2 GM Premix Inj 2 gm In 100 / 100 100 ml @ 200 mls/hr IV.SIG Q6H AMILCAR Rx#:[id number] Ancef 2 GM Premix Inj 2 gm In 100 / 100 50 ml @ 100 mls/hr IV.SIG Q6H AMILCAR Rx#:[id number] Oral 0 / 0 Anesthesia Amount 1600 / 1600 Output: Estimated Blood Loss 200 / 200 Other: # Voids 2 4 Date of Last Bowel Movement 11/27/17 11/26/17 # Bowel Movements 0 Narrative: GEN: Well-developed, well-nourished patient. No acute distress. MSK: Left knee wrapped in Arya wrap clear dry and intact, long hinged knee brace in place CV: Regular rate and rhythm without obvious murmurs LUNGS: Clear to auscultation bilaterally. Normal respiratory effort. No wheezes , rales, rhonchi. GI: Soft, nontender, nondistended. No palpable masses. Bowel sounds WNL. EXT: No edema. NEURO/PSYCH: Afocal. Awake, alert, and oriented x3. Appropriate insight and judgment. Results - Labs CBC & Chem 7: 11/29/17 06:27 11/29/17 06:27 Laboratory Results - last 24 hr 11/29/17 11/29/17 06:27 06:27 WBC 7.2 RBC 3.71 L Hgb 12.3 Hct 36.4 MCV 98.0 MCH 33.1 MCHC 33.8 RDW 13.1 Plt Count 149 L MPV 7.4 Sodium 142 Potassium 4.2 Chloride 109 H Carbon Dioxide 26.0 Anion Gap 7 BUN 7 Creatinine 0.70 Estimated GFR 82 L Random Glucose 134 H Calcium 7.6 L - Imaging Knee X-Ray 11/27/17 17:47 CONCLUSION: Anterior dislocation of the femur. No definite fracture seen, however, there are radiographic findings suggesting possible fat fluid level in the suprapatellar bursa. Pelvis X-Ray 11/27/17 17:47 CONCLUSION: The bony pelvic ring is grossly intact. No evidence of acute bony injury. Tibia/Fibula X-Ray 11/27/17 17:47 CONCLUSION: The tibia and fibula are radiographically intact. Tibia/Fibula X-Ray 11/27/17 17:47 CONCLUSION: No evidence of recent bony injury. Knee X-Ray 11/27/17 19:51 CONCLUSION: Normal alignment of the femur and tibia status post reduction. Possible bony fragments or loose bodies seen posterior to the knee joint on the lateral view. Knee MRI 11/27/17 21:53 CONCLUSION: 1. There appears to be complete disruption of the posterior cruciate ligament. Anterior cruciate ligament and both menisci appear to be intact. 2. Small to moderate-sized joint effusion. - Procedures 11/28/17: Status post left knee arthroscopic evaluation and conversion to open repair of posterior cruciate ligament and anterior cruciate ligament and open repair of lateral collateral ligament and posterior lateral corner Assessment and Plan - Assessment (1) Posterior cruciate tear Code(s): S83.529A - Sprain of posterior cruciate ligament of unspecified knee, initial encounter Status: Acute - Plan This is a 72-year-old female with dislocation of the left knee that resulted in a tear of the left posterior cruciate ligament. Her knee has been reset, and patient be further evaluated by orthopedic surgery for likely further surgical repair. 1. Left posterior cruciate ligament tear: Status post left knee arthroscopic evaluation and conversion open repair of posterior cruciate ligament and anterior cruciate ligament and open repair of lateral collateral ligament and posterior lateral corner. Orthopedic surgery consulted, appreciate assistance Percocet for pain, morphine for breakthrough pain Physical therapy Continue long knee brace Code Status: Full code Discharge Planning: Pending clearance by orthopedic surgery
[2017-11-29] MEDS: Morphine Inj 4 MG/ML Vial IV.PUSH PRN (11:56)
[2017-11-30] MEDS: Sod Chloride 0.9% Inj 1,000 ML IV.CONT SCH (00:45)
[2017-11-30 08:45] VITALS: RESP 18
--- NOTE | 2017-11-30 08:50 | P.PNIM ---
Subjective Interval history: Patient seen and examined this morning. Afebrile vital signs stable. Patient reports that her pain is well controlled. Reports that she is passing gas and urinating on her own. Denies any nausea or vomiting. She is hopeful for getting out of the hospital soon. Physical Exam Vital signs: Vital Signs 11/29/17 12:00 11/29/17 14:28 11/29/17 20:00 Temperature 98.7 F 100.1 F H 99.5 F Pulse Rate 68 89 84 Respiratory Rate 18 18 18 Blood Pressure 123/58 L 146/71 H 138/63 Pulse Oximetry 92 L 93 L 95 11/30/17 00:00 11/30/17 04:00 11/30/17 08:00 Temperature 100.0 F H 99.2 F 98.6 F Pulse Rate 86 80 75 Respiratory Rate 17 17 18 Blood Pressure 133/61 140/63 138/64 Pulse Oximetry 95 94 L 92 L Intake & Output 11/29/17 11/30/17 11/30/17 18:59 06:59 18:59 Intake Total 2660 / 2660 Output Total 200 / 200 Balance 2460 / 2460 Weight 78 kg Intake: IV 100 / 100 Ancef 2 GM Premix Inj 2 gm In 100 / 100 100 ml @ 200 mls/hr IV.SIG Q6H AMILCAR Rx#:[id number] Oral 960 / 960 Anesthesia Amount 1600 / 1600 Output: Estimated Blood Loss 200 / 200 Other: # Voids 2 5 Date of Last Bowel Movement 11/26/17 11/29/17 # Bowel Movements 0 1 Narrative: GEN: Well-developed, well-nourished patient. No acute distress. MSK: Left knee wrapped in Arya wrap clear dry and intact, long hinged knee brace in place CV: Regular rate and rhythm without obvious murmurs LUNGS: Clear to auscultation bilaterally. Normal respiratory effort. No wheezes , rales, rhonchi. GI: Soft, nontender, nondistended. No palpable masses. Bowel sounds WNL. EXT: No edema. NEURO/PSYCH: Afocal. Awake, alert, and oriented x3. Appropriate insight and judgment. Results - Labs CBC & Chem 7: 11/29/17 06:27 11/29/17 06:27 - Imaging Impressions Knee MRI 11/27/17 21:53 CONCLUSION: 1. There appears to be complete disruption of the posterior cruciate ligament. Anterior cruciate ligament and both menisci appear to be intact. 2. Small to moderate-sized joint effusion. - Procedures 11/28/17: Status post left knee arthroscopic evaluation and conversion to open repair of posterior cruciate ligament and anterior cruciate ligament and open repair of lateral collateral ligament and posterior lateral corner Assessment and Plan - Assessment (1) Posterior cruciate tear Code(s): S83.529A - Sprain of posterior cruciate ligament of unspecified knee, initial encounter Status: Acute - Plan This is a 72-year-old female with dislocation of the left knee that resulted in a tear of the left posterior cruciate ligament. Her knee has been reset, and patient be further evaluated by orthopedic surgery. 1. Left posterior cruciate ligament tear: Status post left knee arthroscopic evaluation and conversion open repair of posterior cruciate ligament and anterior cruciate ligament and open repair of lateral collateral ligament and posterior lateral corner. Orthopedic surgery consulted, appreciate assistance Percocet for pain, morphine for breakthrough pain Physical therapy Continue long knee brace Discharge planning: Likely will require [facility] facility Code Status: Full code Discharge Planning: Pending clearance by orthopedic surgery, likely will require skilled
--- NOTE | 2017-11-30 09:00 | P.PNOP ---
Subjective Interval history: patient comfortable Physical Exam Vital signs: Vital Signs 11/29/17 12:00 11/29/17 14:28 11/29/17 20:00 Temperature 98.7 F 100.1 F H 99.5 F Pulse Rate 68 89 84 Respiratory Rate 18 18 18 Blood Pressure 123/58 L 146/71 H 138/63 Pulse Oximetry 92 L 93 L 95 11/30/17 00:00 11/30/17 04:00 11/30/17 08:00 Temperature 100.0 F H 99.2 F 98.6 F Pulse Rate 86 80 75 Respiratory Rate 17 17 18 Blood Pressure 133/61 140/63 138/64 Pulse Oximetry 95 94 L 92 L Intake & Output 11/29/17 11/30/17 11/30/17 18:59 06:59 18:59 Intake Total 2660 / 2660 Output Total 200 / 200 Balance 2460 / 2460 Weight 78 kg Intake: IV 100 / 100 Ancef 2 GM Premix Inj 2 gm In 100 / 100 100 ml @ 200 mls/hr IV.SIG Q6H AMILCAR Rx#:[id number] Oral 960 / 960 Anesthesia Amount 1600 / 1600 Output: Estimated Blood Loss 200 / 200 Other: # Voids 2 5 Date of Last Bowel Movement 11/26/17 11/29/17 11/29/17 # Bowel Movements 0 1 - Constitutional no acute distress Comments: Patient at bedside Left lower extremity long leg range of motion brace in place locked at 20 flexion. Able to dorsiflex and plantarflex the foot sensation intact Good capillary refill Results - Labs CBC & Chem 7: 11/29/17 06:27 11/29/17 06:27 - Imaging Impressions Knee MRI 11/27/17 21:53 CONCLUSION: 1. There appears to be complete disruption of the posterior cruciate ligament. Anterior cruciate ligament and both menisci appear to be intact. 2. Small to moderate-sized joint effusion. - Procedures 11/28/17: Status post left knee arthroscopic evaluation and conversion to open repair of posterior cruciate ligament and anterior cruciate ligament and open repair of lateral collateral ligament and posterior lateral corner Assessment and Plan - Problem List (1) Posterior dislocation of proximal end of tibia, left knee, initial encounter Code(s): S83.125A - Posterior dislocation of proximal end of tibia, left knee, initial encounter Status: Acute - Assessment and Plan POD #2 Left knee arthroscopic evaluation and conversion to open repair of posterior cruciate ligament and anterior cruciate ligament and open repair of lateral collateral ligament and posterolateral corner. Pain management Physical therapy - TTWB Wear long hinge knee brace at all times (brace set to 20 deg. of flexion) Medical management D/C planning-cleared to discharge home today Follow-up with Dr. Ludwig Mtz and nurse practitioner Phi Vargas in 2 weeks in the [place] office. Monitor
[2017-11-30] MEDS: Senna/Docusate Sodium 8.6/50 MG Tablet PO SCH (11:20)
--- NOTE | 2017-11-30 11:49 | P.DS ---
Date of admission: 11/27/17 22:16 Primary care physician: Lazaro Wilburn Brief History from admission: 72-year-old female with past medical history significant for history of breast cancer presents to the emergency department after suffering a fall. The patient reports she was painting on a ledge in her kitchen when she slipped and fell but her leg got caught. The patient was hanging upside down by her left leg. Her brought a ladder and was able to dislodge her leg and carry her down from the ledge. Following the incident, the patient was unable to walk secondary to pain. She was found to have an anterior dislocation of the left femur and a 7 cm laceration to the right anterior lower leg. The patient' s femur was reduced multiple times in the emergency department and is currently splinted. She is neurovascularly intact. She endorses left lower extremity pain. Denies chest pain or shortness of breath. No loss of consciousness or head trauma. No abdominal pain. No nausea/vomiting/diarrhea. No fever/ chills. No lateralizing signs/symptoms. DS: Diagnosis - Discharge Diagnosis (1) Posterior cruciate tear Status: Acute DS: Summary Hospital Course: Patient was admitted on 11/27/16 due to dislocation of the left knee. This resulted in tear of her anterior and posterior cruciate ligament. She required open repair of those ligaments. On 11/30/17 she was deemed stable for discharge. She will follow-up as an outpatient with orthopedic surgery. - Time Spent with Patient Total time spent providing and/or coordinating discharge services: Less than 30 minutes - Quality: VTE Deep Vein Thrombosis/Pulmonary Embolism Present on Admission: No Exam Vital signs: Vital Signs 11/29/17 12:00 11/29/17 14:28 11/29/17 20:00 Temperature 98.7 F 100.1 F H 99.5 F Pulse Rate 68 89 84 Respiratory Rate 18 18 18 Blood Pressure 123/58 L 146/71 H 138/63 Pulse Oximetry 92 L 93 L 95 11/30/17 00:00 11/30/17 04:00 11/30/17 08:00 Temperature 100.0 F H 99.2 F 98.6 F Pulse Rate 86 80 75 Respiratory Rate 17 17 18 Blood Pressure 133/61 140/63 138/64 Pulse Oximetry 95 94 L 92 L Intake & Output 11/29/17 11/30/17 11/30/17 18:59 06:59 18:59 Intake Total 2660 / 2660 Output Total 200 / 200 Balance 2460 / 2460 Weight 78 kg Intake: IV 100 / 100 Ancef 2 GM Premix Inj 2 gm In 100 / 100 100 ml @ 200 mls/hr IV.SIG Q6H AMILCAR Rx#:[id number] Oral 960 / 960 Anesthesia Amount 1600 / 1600 Output: Estimated Blood Loss 200 / 200 Other: # Voids 2 5 Date of Last Bowel Movement 11/26/17 11/29/17 11/29/17 # Bowel Movements 0 1 Narrative: GEN: Well-developed, well-nourished patient. No acute distress. MSK: Left knee wrapped in Arya wrap clear dry and intact, long hinged knee brace in place CV: Regular rate and rhythm without obvious murmurs LUNGS: Clear to auscultation bilaterally. Normal respiratory effort. No wheezes , rales, rhonchi. GI: Soft, nontender, nondistended. No palpable masses. Bowel sounds WNL. EXT: No edema. NEURO/PSYCH: Afocal. Awake, alert, and oriented x3. Appropriate insight and judgment. Results Procedures completed during hospitalization: 11/28/17: Status post left knee arthroscopic evaluation and conversion to open repair of posterior cruciate ligament and anterior cruciate ligament and open repair of lateral collateral ligament and posterior lateral corner - Impressions ITS Impressions Pelvis X-Ray 11/27/17 17:47 CONCLUSION: The bony pelvic ring is grossly intact. No evidence of acute bony injury. Tibia/Fibula X-Ray 11/27/17 17:47 CONCLUSION: No evidence of recent bony injury. Knee X-Ray 11/27/17 19:51 CONCLUSION: Normal alignment of the femur and tibia status post reduction. Possible bony fragments or loose bodies seen posterior to the knee joint on the lateral view. Knee MRI 11/27/17 21:53 CONCLUSION: 1. There appears to be complete disruption of the posterior cruciate ligament. Anterior cruciate ligament and both menisci appear to be intact. 2. Small to moderate-sized joint effusion. Discharge Plan - Discharge Disposition Patient Disposition: 01 Discharge Home - Discharge Condition Condition: Stable - Discharge Order Discharge Orders: Discharge Order (Routine); Ordered 11/30/17 Ordered By: Bull Lackey Orthopedic Clear for Discharge (Routine); Ordered 11/30/17 Ordered By: Ludwig M Smith - Discharge Details Anticipated Discharge Date: 11/30/17 - Physicians Team Primary Care Provider: Lazaro Wilburn Attending Provider: Bull Lackey Other Providers: Ludwig Mtz MD ; Josefina Byrne MD ; Hui Ames
[2017-11-30] MEDS ORDERED: Levothyroxine 100 MCG Tablet PO SCH (12:00)
[2017-11-30 13:00] VITALS: BP 137/64; PULSE 80; TEMP 98.7; O2SAT 93
[2017-11-30] MEDS ORDERED: Citalopram 20 MG Tablet PO SCH (14:00)
== END 2017-11-30 13:05 | disposition home health service (06) ==
LOC: NEPE 17:08 → NEDA 22:16 → N06 11-28 00:53
PROVIDERS: ADMIT Hospitalist; ATTEND Hospitalist